=== PATIENT | male | born 1955 | race Caucasian/White ===

== ENCOUNTER → 2016-10-10 | Outpatient (CLI) | payer MEDICAID | LOC: BRMIMAGING 15:29 | PROVIDERS: ATTEND Physician Assistant | DX: M47.896 Other spondylosis, lumbar region (principal) | CPT/HCPCS: 72100-PO ==

== ENCOUNTER → 2017-11-17 | Outpatient (CLI) | payer MEDICAID | LOC: BRMIMAGING 12:15 | PROVIDERS: ATTEND Physician Assistant | DX: R06.02 Shortness of breath (principal); J90 Pleural effusion, not elsewhere classified; J98.11 Atelectasis; I51.7 Cardiomegaly; R91.8 Other nonspecific abnormal finding of lung field; Z99.2 Dependence on renal dialysis | CPT/HCPCS: 71046-PO ==